=== PATIENT | male | born 1955 | race Caucasian/White ===

== ENCOUNTER 2021-12-16 11:00 | Emergency (ER) | payer MEDICARE ==
[~2021-12-16] VITALS: Ht 180.3 cm; Wt 78.0 kg
[2021-12-16] VITALS (7 sets, daily range): BP systolic 105–124; BP diastolic 70–81
[2021-12-16] MEDS ORDERED: HYDROCO/APAP1 TA9 PO (14:10)
[2021-12-16] MEDS ORDERED: NAPROXEN500 MG PO (14:10)
[2021-12-16] MEDS ORDERED: KEFLEX500 MG PO (14:10)
== END 2021-12-16 14:35 | disposition home or self-care (01) ==
LOC: ED 11:00
PROC: 0HQGXZZ Repair Left Hand Skin, External Approach (ICD-10-PCS; principal; 2021-12-16)
DX: S61.012A Laceration without foreign body of left thumb without damage to nail, initial encounter (principal); W29.3XXA Contact with powered garden and outdoor hand tools and machinery, initial encounter

== ENCOUNTER 2022-03-23 12:18 | Emergency (ER) | payer MEDICARE, OTHER ==
[~2022-03-23] VITALS: Ht 180.3 cm; Wt 85.7 kg
[~2022-03-23 12:18] MED LIST: HYDROCO/APAP1 TA9 PO; KEFLEX500 MG PO; NAPROXEN500 MG PO
[2022-03-23 15:59] VITALS: BP 120/80
[2022-03-27] MEDS ORDERED: CEPHALEXIN500 M1 PO (09:29)
== END 2022-03-23 16:12 | disposition home or self-care (01) ==
LOC: ED 12:18
PROC: 0H96XZZ Drainage of Back Skin, External Approach (ICD-10-PCS; principal; 2022-03-23)
DX: R22.2 Localized swelling, mass and lump, trunk (principal)

== ENCOUNTER 2022-10-17 23:54 | Emergency (ER) | payer MEDICARE, OTHER ==
[~2022-10-17] VITALS: Ht 180.3 cm; Wt 83.0 kg
[~2022-10-17 23:54] MED LIST changes: +CEPHALEXIN500 M1 PO
[2022-10-18 00:30] VITALS: BP 120/84
[2022-10-18 00:45] LABS: BASO% 0.2 % (0-3); HEMOGLOBIN 14.1 g/dl (14.0-18.0); IMMATURE GRANULOCYTES 0.6 % (0.0-5.0); LYMPH% 22.7 % (15-41); MEAN CELL VOLUME 87.9 fL CALC (80.0-100.0); MEAN CORPUSCULAR HGB 29.5 pG CALC (26.0-32.0); MEAN CORPUSCULAR HGB CONC 33.6 g/dL CAL (32.0-36.0); MONO% 8.8 % (2-13); NEUT# 5.49 thou/uL (1.82-7.42); NEUT% 65.7 % (42-76); RED BLOOD COUNT 4.78 mill/uL (4.70-6.10); RED CELL DISTRI WIDTH 11.9 % (11.5-15.5)
[2022-10-18] MEDS ORDERED: ASPIRIN LOW81 M1 PO (00:59)
[2022-10-18] MEDS ORDERED: CHOLESTEROL MED (00:59)
[2022-10-18 01:00] VITALS: BP 111/72
[2022-10-18] MEDS ORDERED: FISH OIL1000 M1 PO (01:00)
[2022-10-18 01:01] LABS: ALKALINE PHOSPHATASE 82 u/l (38-126); ANION GAP 13 (6-22 (CALC)); BILIRUBIN, TOTAL 0.2 mg/dL (0.2-1.3); BUN 17 mg/dL (8-23); BUN/CREATININE RATIO 18 (12-20 (CALC)); CARBON DIOXIDE 24 mmol/l (22-30); CHLORIDE 104 mmol/l (95-108); CREATININE 0.9 mg/dL (0.7-1.3); GFR FOR AFR.AMER. > 60 ML/MIN (>=60 (CALC)); GFR OTHER RACES > 60 ML/MIN (>=60 (CALC)); POTASSIUM 3.5 mmol/l (3.5-5.1); SGOT/AST 27 u/l (19-48); SODIUM 138 mmol/l (137-146); TOTAL PROTEIN 6.6 g/dL (6.3-8.2)
[2022-10-18 01:31] VITALS: BP 105/69
[2022-10-18 01:36] LABS: TSH, 3RD GENERATION 3.52 uIU/mL (0.47 - 4.68)
[2022-10-18 01:37] LABS: URINE BILIRUBIN - DIPSTICK NEGATIVE (NEGATIVE); URINE BLOOD DIPSTICK NEGATIVE (NEGATIVE); URINE COLOR YELLOW; URINE GLUCOSE - DIPSTICK NEGATIVE (NEGATIVE); URINE KETONE NEGATIVE (NEGATIVE); URINE LEUK ESTERASE NEGATIVE (NEGATIVE); URINE PROTEIN - DIPSTICK NEGATIVE (NEG-TRACE); URINE SPECIFIC GRAVITY 1.015; URINE UROBILINOGEN - DIPSTICK 0.2 E.U./dL (0.2)
[2022-10-18 01:42] LABS: URINE NITRITE - DIPSTICK NEGATIVE (Negative)
[2022-10-18] MEDS ORDERED: ATIVAN0.5 MG PO (01:50)
[2022-10-18 02:00] VITALS: BP 123/85
[2022-10-18 02:11] VITALS: BP 123/85
== END 2022-10-18 01:45 | disposition home or self-care (01) ==
LOC: ED 23:54
PROVIDERS: Emergency Medicine
DX: F41.1 Generalized anxiety disorder (principal); F43.0 Acute stress reaction; R00.2 Palpitations; I45.6 Pre-excitation syndrome